=== PATIENT | female | born 1980 | race Caucasian/White ===

== ENCOUNTER 2016-10-19 07:26 | Inpatient (IN) | payer OTHER ==
[~2016-10-19] VITALS: Ht 165.1 cm; Wt 82.6 kg
[2016-10-19] VITALS (23 sets, daily range): BP systolic 101–126; BP diastolic 55–89
[~2016-10-19 07:26] MED LIST: COLACE100 MG PO; DICLEGIS DR 101 EACH PO; LO-DOSE ASPIRIN81 M2 PO; Motrin PO; PRENATAL TABLE1 EAC3 PO; Percocet 5/325,Endoc PO
[2016-10-19] MEDS ORDERED: ZANTAC150 MG PO (08:01)
[2016-10-19 08:55] LABS: BASOPHIL COUNT 0.1 K/uL (0-0.1); EOSINOPHIL (%) 2.4 % (0-5); EOSINOPHIL COUNT 0.2 K/uL (0-0.3); HEMATOCRIT 34.8 % (36.0-46.0); IMMATURE GRANULOCYTE (%) 0.9 % (0.0-0.7); IMMATURE GRANULOCYTE COUNT 0.1 K/uL; INSTRUMENT ABS NEUTROPHIL CT 6.3 K/uL; LYMPHOCYTE COUNT 1.2 K/uL (1.0-2.8); MCH 29.6 PG (29.0-34.0); MCHC 33.6 G/DL (30.0-36.0); MCV 88.1 FL (83-99); MONOCYTE (%) 8.1 % (3-12); MONOCYTE COUNT 0.7 K/uL (0-0.8); NEUTROPHIL (%) 74.3 % (45-76); NEUTROPHIL COUNT 6.3 K/uL (1.8-6.4); PLATELET COUNT 173 K/uL (156-360); RBC DIS.WIDTH-CV 13.3 % (11.8-14.6); RBC DIS.WIDTH-SD 42.5 % (39-53); RED BLOOD COUNT 3.95 M/uL (3.80-5.20); WHITE BLOOD COUNT 8.5 K/uL (4.1-10.2)
[2016-10-19] MEDS ORDERED: MOTRIN800 MG PO (22:45)
[2016-10-20 00:39] VITALS: BP 113/60
[2016-10-20 01:47] VITALS: BP 119/65
[2016-10-20 07:45] VITALS: BP 122/73
[2016-10-20 15:22] VITALS: BP 118/75
[2016-10-20 23:00] VITALS: BP 109/64
[2016-10-21 07:38] VITALS: BP 103/70
== END 2016-10-21 14:25 | disposition home or self-care (01) | DRG 775 ==
LOC: LDRP-OP 07:26 → 2WEST 07:27
PROVIDERS: Nurse Practitioner
PROC: 3E0K7GC Introduction of Other Therapeutic Substance into Genitourinary Tract, Via Natural or Artificial Opening (ICD-10-PCS; principal; 2016-10-19)
PROC: 3E0R3CZ (ICD-10-PCS; principal; 2016-10-19)
PROC: 10E0XZZ Delivery of Products of Conception, External Approach (ICD-10-PCS; principal; 2016-10-19)
PROC: 3E030VJ Introduction of Other Hormone into Peripheral Vein, Open Approach (ICD-10-PCS; principal; 2016-10-19)
PROC: 10907ZC Drainage of Amniotic Fluid, Therapeutic from Products of Conception, Via Natural or Artificial Opening (ICD-10-PCS; principal; 2016-10-19)
PROC: 0HQ9XZZ Repair Perineum Skin, External Approach (ICD-10-PCS; principal; 2016-10-19)
PROC: 00HU33Z Insertion of Infusion Device into Spinal Canal, Percutaneous Approach (ICD-10-PCS; principal; 2016-10-19)
DX: O36.63X1 Maternal care for excessive fetal growth, third trimester, fetus 1 (principal); O09.523 Supervision of elderly multigravida, third trimester; O70.0 First degree perineal laceration during delivery; Z3A.39 39 weeks gestation of pregnancy; Z87.891 Personal history of nicotine dependence; O99.820 Streptococcus B carrier state complicating pregnancy; Z37.0 Single live birth
CPT/HCPCS: 85025; C1755; J2795; J3010; J7120